=== PATIENT | male | born 1965 | race Caucasian/White ===

== ENCOUNTER → 2016-04-21 | Outpatient (REF) | payer BC ==
[2016-04-21 16:50] LABS: BASOPHILS % (AUTO) 0 % (0-2); EOSINOPHILS # (AUTO) 0.1 10^3uL; EOSINOPHILS % (AUTO) 1 % (0-4); LYMPHOCYTES # (AUTO) 1.8 X10^3; MEAN CORPUSCULAR HEMOGLOBIN 27.5 PG (26.0-34.0); MEAN CORPUSCULAR HGB CONC 33.9 g/dL (31.0-37.0); MEAN CORPUSCULAR VOLUME 81 FL (80-100); MEAN PLATELET VOLUME 11.1 FL (6.0-9.5); MONOCYTES # (AUTO) 0.7 X10^3; MONOCYTES % (AUTO) 10 % (3-11); NEUTROPHILS # (AUTO) 4.5 X10^3; NEUTROPHILS % (AUTO) 63 % (51-67); PLATELET COUNT 245 10^3uL (150-450); WHITE BLOOD COUNT 7.07 10^3uL (4.0-11.0)
[2016-04-21 17:17] LABS: ALBUMIN 4.1 g/dL (3.4-5.0); ANION GAP 14.3 MEQ/L (3-15); CALCULATED IONIZED CALCIUM 4.1 mg/dL (3.8-4.6)
== END ==
LOC: LAB 15:58
PROVIDERS: ATTEND Family Medicine
DX: E78.1 Pure hyperglyceridemia (principal); I10 Essential (primary) hypertension; G62.89 Other specified polyneuropathies; E11.9 Type 2 diabetes mellitus without complications; K31.84 Gastroparesis; M54.5 Low back pain
CPT/HCPCS: 80053; 80061; 83036; 84153; 84443; 85025

== ENCOUNTER → 2016-05-05 | Outpatient (REF) | payer BC | LOC: LAB 13:34 | PROVIDERS: ATTEND Family Medicine | DX: D64.9 Anemia, unspecified (principal) | CPT/HCPCS: 82607; 82728; 82746; 83540; 83550 ==

== ENCOUNTER → 2016-05-12 | Outpatient (REF) | payer BC ==
[2016-05-12 08:51] LABS: BILIRUBIN,URINE Negative (Negative); CLARITY,URINE Clear; COLOR,URINE Yellow; GLUCOSE, URINE (UA) 2+ (Negative); LEUKOCYTE ESTERASE ,URINE Negative (Negative); PH,URINE 5.5 (5.0 - 8.0); UROBILINOGEN,URINE 0.2 mg/dL (0.2-1.0)
== END ==
LOC: LAB 08:40
PROVIDERS: ATTEND Family Medicine
DX: E11.9 Type 2 diabetes mellitus without complications (principal); M54.5 Low back pain
CPT/HCPCS: 81003; 82043

== ENCOUNTER → 2016-07-13 | Outpatient (CLI) | payer BC ==
[~2016-07-13] MED LIST: methylPREDNISolone 80 MG/ML (DEPO MEDROL) VIAL IM ONE
--- NOTE | 2016-07-13 15:22 | PAIN MANAGEMENT ---
Date of note: 07/13/2016 PROCEDURE: C6-C7 epidural steroid injection under fluoroscopy. TOTAL FLUOROSCOPIC TIME: 21 seconds. This is a 51-year-old male patient under the care of Dr. Pedro Gillespie. Mr. Salinas was referred to anesthesia for the purposes of a cervical epidural steroid injection secondary to cervical radiculopathy. The patient has radicular symptoms that come down through his neck, arm, and into his fingers predominantly on his left side following a C6-C7 dermatome levels. Based on presentation today we decided to proceed forward with a C6-C7 epidural steroid injection. Informed consent was obtained. The patient was taken to the operating room for the use of fluoroscopic guidance for needle tip placement. Orders for procedure verified. Patient denies any bleeding tendencies. After informed consent obtained, the patient was positioned for the cervical epidural steroid injection. The area was prepped and draped using aseptic technique. The skin and overlying tissues were localized with 3 mL of 1% Preservative-Free lidocaine using a 25-gauge needle. A 20-gauge Tuohy needle was advanced, using "loss of resistance" technique, to the epidural space. No blood, cerebral spinal fluid, pain, or paresthesia noted on entry of the epidural space. A 1 mL solution of Depo-Medrol 80 mg was injected slowly without mass volume effect. The needle was then removed. The patient was then turned back to the sitting position where he remained for approximately 10 minutes. He is released with vital stable and faculties intact. He is escorted to the door per ON CALL PHARMACY TECHNICIAN. He is asked to follow up with me via my cellphone in 3 days. The patient states he understands these discharge instructions and I will follow him from there.
== END ==
LOC: PMC 12:05
PROVIDERS: ATTEND Family Medicine
DX: M54.12 Radiculopathy, cervical region (principal); E11.42 Type 2 diabetes mellitus with diabetic polyneuropathy; E11.43 Type 2 diabetes mellitus with diabetic autonomic (poly)neuropathy; K31.84 Gastroparesis; Z79.4 Long term (current) use of insulin
CPT/HCPCS: 62321; J1040